=== PATIENT | male | born 1980 | race Caucasian/White ===

== ENCOUNTER 2024-04-04 07:15 | Inpatient (IN) | payer BC ==
[~2024-04-04] VITALS: Ht 175.3 cm; Wt 111.1 kg
[2024-04-04 07:22] VITALS: BP 126/83; PULSE 125; RESP 16; TEMP 98.5; O2SAT 99
[2024-04-04 07:47] LABS: BASOPHILS # (AUTO) 0.1 K/uL (0.00-0.22); BASOPHILS % (AUTO) 0.3 % (0.0-2.0); EOSINOPHILS % (AUTO) 0.2 % (0.0-4.0); HEMATOCRIT 46.5 % (36-52); HEMOGLOBIN 15.7 g/dL (12.0-18.0); LYMPHOCYTES # (AUTO) 1.3 K/uL (2.0-11.5); LYMPHOCYTES % (AUTO) 6.4 % (20.5-51.1); MEAN CORPUSCULAR HEMOGLOBIN 31 pg (27-31); MEAN CORPUSCULAR HGB CONC 34 g/dL (33-37); MEAN CORPUSCULAR VOLUME 91.9 fL (80-94); MONOCYTES # (AUTO) 1.4 K/uL (0.8-1.0); MONOCYTES % (AUTO) 7.2 % (1.7-9.3); NEUTROPHILS # (AUTO) 16.8 K/uL (1.8-7.7); NEUTROPHILS % (AUTO) 85.9 % (42.2-75.2); PLATELET COUNT (AUTO) 288 K/uL (140-450); RED BLOOD CELL COUNT(AUTO) 5.06 MIL/uL (4.20-6.10); RED CELL DISTRIBUTION WIDTH 15.2 % (11.6-13.7); WHITE BLOOD COUNT (AUTO) 19.6 K/uL (4.8-10.8)
[2024-04-04] MEDS: NACL 0.9% 1,000 ML IV ONE (07:50)
[2024-04-04] MEDS: ONDANSETRON 4 MG/2 ML VIAL IVP ONE (07:52)
[2024-04-04] MEDS: KETOROLAC 30 MG/ML VIAL IVP ONE (07:52)
[2024-04-04 07:57] LABS: ANION GAP 15.8 (8-16); CALCIUM 7.9 mg/dL (8.5-10.1); CARBON DIOXIDE 23.1 mmol/L (21-32); CREATININE 1.1 mg/dL (0.6-1.3); POTASSIUM 3.9 mmol/L (3.5-5.1)
[2024-04-04 08:03] LABS: ALBUMIN 3.4 g/dL (3.4-5.0); BILIRUBIN,DIRECT 2.5 mg/dL (0.0-0.3); TOTAL PROTEIN, SERUM 6.5 g/dL (6.4-8.2)
[2024-04-04 08:13] LABS: TOTAL BILIRUBIN 4.7 mg/dL (0.0-1.0)
[2024-04-04] MEDS ORDERED: LAM200 PO (09:06)
[2024-04-04] MEDS ORDERED: BUS5 PO (09:08)
[2024-04-04] MEDS ORDERED: LORazepam 1 MG TAB PO PRN (10:10)
[2024-04-04] MEDS ORDERED: ONDANSETRON 4 MG/2 ML VIAL IVP PRN (10:10)
[2024-04-04] MEDS: MORPHINE SULFATE 4 MG/ML SYR IVP ONE (10:15)
[2024-04-04] MEDS ORDERED: hydrALAZINE 20 MG/ML VIAL IVP PRN (10:15)
[2024-04-04] MEDS: NACL 0.9% 1,000 ML IV SCH (10:18)
[2024-04-04] MEDS: chlordiazePOXIDE 25 MG CAP PO SCH (13:14)
[2024-04-04] MEDS: MORPHINE SULFATE 2 MG/ML SYR IVP PRN (14:15)
[2024-04-04] MEDS: HYDROcodone/APAP 5/325 MG 1 TAB TAB PO PRN (16:06)
[2024-04-04 16:40] VITALS: PULSE 102; RESP 21; O2SAT 95
[2024-04-04 20:00] VITALS: BP 133/74; PULSE 105; PULSE 106; PULSE 117; RESP 18; TEMP 99; O2SAT 94
[2024-04-04 22:20] LABS: CHOL/HDL RATIO 5.3 (1-4.5)
[2024-04-04 22:40] VITALS: BP 112/81; PULSE 117; RESP 18; TEMP 98.2; O2SAT 94
[2024-04-05] VITALS: PULSE 117
[2024-04-05 04:00] VITALS: BP 120/75; PULSE 107; PULSE 114; RESP 18; TEMP 98; O2SAT 94
[2024-04-05 05:15] LABS: BASOPHILS % (AUTO) 0.1 % (0.0-2.0); EOSINOPHILS % (AUTO) 0.2 % (0.0-4.0); HEMATOCRIT 38.1 % (36-52); HEMOGLOBIN 12.9 g/dL (12.0-18.0); LYMPHOCYTES % (AUTO) 5.9 % (20.5-51.1); MEAN CORPUSCULAR HEMOGLOBIN 32 pg (27-31); MEAN CORPUSCULAR HGB CONC 34 g/dL (33-37); MEAN CORPUSCULAR VOLUME 93.7 fL (80-94); MONOCYTES # (AUTO) 1.3 K/uL (0.8-1.0); MONOCYTES % (AUTO) 7.7 % (1.7-9.3); NEUTROPHILS # (AUTO) 14.1 K/uL (1.8-7.7); NEUTROPHILS % (AUTO) 86.1 % (42.2-75.2); PLATELET COUNT (AUTO) 201 K/uL (140-450); RED BLOOD CELL COUNT(AUTO) 4.07 MIL/uL (4.20-6.10); RED CELL DISTRIBUTION WIDTH 15.1 % (11.6-13.7); WHITE BLOOD COUNT (AUTO) 16.4 K/uL (4.8-10.8)
[2024-04-05 06:07] LABS: ALBUMIN 2.3 g/dL (3.4-5.0); ANION GAP 13.2 (8-16); CARBON DIOXIDE 22.7 mmol/L (21-32); MAGNESIUM 1.8 mg/dL (1.8-2.4); PHOSPHORUS 1.5 mg/dL (2.5-4.9); POTASSIUM 3.9 mmol/L (3.5-5.1); TOTAL BILIRUBIN 2.6 mg/dL (0.0-1.0); TOTAL PROTEIN, SERUM 5.1 g/dL (6.4-8.2)
[2024-04-05 08:00] VITALS: BP 148/86; PULSE 102; PULSE 104; PULSE 105; RESP 17; RESP 20; TEMP 98.3; O2SAT 94
[2024-04-05] MEDS: DOCUSATE SODIUM 100 MG GELCAP PO SCH (09:39)
[2024-04-05] MEDS: PANTOPRAZOLE 40 MG INJ VIAL IVP SCH (09:39)
[2024-04-05] MEDS: FOLIC ACID 1 MG TAB PO SCH (09:39)
[2024-04-05] MEDS: THIAMINE 100 MG TAB PO SCH (09:40)
[2024-04-05] MEDS: MULTIVITAMIN 1 TAB PO SCH (09:40)
[2024-04-05 12:00] VITALS: BP 126/75; PULSE 102; PULSE 103; RESP 18; TEMP 97.7; O2SAT 94
[2024-04-05 16:00] VITALS: BP 117/66; PULSE 107; PULSE 110; RESP 20; TEMP 99.8; O2SAT 97
[2024-04-05 20:00] VITALS: BP 120/68; PULSE 107; PULSE 130; RESP 18; RESP 20; TEMP 99; O2SAT 97
[2024-04-05] MEDS: ZOLPIDEM 5 MG TAB PO PRN (22:41)
[2024-04-06] VITALS (7 sets, daily range): BP systolic 110–114; BP diastolic 60–76; PULSE 82–117; RESP 17–20; TEMP 97.7–100.1; O2SAT 94–99
[2024-04-06 06:17] LABS: ALBUMIN 2.1 g/dL (3.4-5.0); ANION GAP 7.1 (8-16); CALCIUM 7.2 mg/dL (8.5-10.1); CARBON DIOXIDE 29.5 mmol/L (21-32); CREATININE 0.9 mg/dL (0.6-1.3); MAGNESIUM 1.9 mg/dL (1.8-2.4); PHOSPHORUS 1.3 mg/dL (2.5-4.9); POTASSIUM 3.6 mmol/L (3.5-5.1); TOTAL BILIRUBIN 2.1 mg/dL (0.0-1.0); TOTAL PROTEIN, SERUM 5.5 g/dL (6.4-8.2)
[2024-04-06 06:54] LABS: BASOPHILS % (AUTO) 0.1 % (0.0-2.0); EOSINOPHILS # (AUTO) 0.1 K/uL (0-0.4); EOSINOPHILS % (AUTO) 0.5 % (0.0-4.0); HEMATOCRIT 37.8 % (36-52); HEMOGLOBIN 12.6 g/dL (12.0-18.0); LYMPHOCYTES # (AUTO) 1.4 K/uL (2.0-11.5); LYMPHOCYTES % (AUTO) 7.9 % (20.5-51.1); MEAN CORPUSCULAR HEMOGLOBIN 31 pg (27-31); MEAN CORPUSCULAR HGB CONC 33 g/dL (33-37); MEAN CORPUSCULAR VOLUME 93.8 fL (80-94); MONOCYTES # (AUTO) 1.6 K/uL (0.8-1.0); MONOCYTES % (AUTO) 9.3 % (1.7-9.3); NEUTROPHILS # (AUTO) 14.3 K/uL (1.8-7.7); NEUTROPHILS % (AUTO) 82.2 % (42.2-75.2); PLATELET COUNT (AUTO) 218 K/uL (140-450); RED BLOOD CELL COUNT(AUTO) 4.03 MIL/uL (4.20-6.10); RED CELL DISTRIBUTION WIDTH 14.6 % (11.6-13.7)
[2024-04-06 06:57] LABS: WHITE BLOOD COUNT (AUTO) 17.4 K/uL (4.8-10.8)
[2024-04-06] MEDS: ACETAMINOPHEN 325 MG TAB PO PRN (09:05)
[2024-04-06] MEDS ORDERED: ATOR20TA PO (18:25)
== END 2024-04-06 19:23 | disposition home or self-care (01) | DRG 439 ==
LOC: MED 07:15 → MTU 10:13
PROVIDERS: ADMIT Student in an Organized Health Care Education/Training Program; ATTEND Student in an Organized Health Care Education/Training Program
DX: K85.90 Acute pancreatitis without necrosis or infection, unspecified (principal); R65.10 Systemic inflammatory response syndrome (SIRS) of non-infectious origin without acute organ dysfunction; I10 Essential (primary) hypertension; F17.210 Nicotine dependence, cigarettes, uncomplicated; F10.10 Alcohol abuse, uncomplicated; E66.01 Morbid (severe) obesity due to excess calories; E78.1 Pure hyperglyceridemia; Z68.36 Body mass index [BMI] 36.0-36.9, adult; Z79.899 Other long term (current) drug therapy
CPT/HCPCS: 36415; 74150; 76700; 80048; 80053; 80076; 83690; 83735; 84100; 85025; 96361; 96374; 96375; 99285; C9113; J1885; J2270; J2405; Q0092